=== PATIENT | female | born 1955 | race African-American/Black ===

== ENCOUNTER → 2018-08-24 | Day surgery (SDC) | payer BC ==
--- NOTE | 2018-08-28 12:09 | PATH ---
Surgical Pathology Report Patient Name: PARKER GASPAR [facility]. Rec. #: [id number] /Age/Gender: 1955 (Age: 62) / F Account: [id number] Location: [facility] Taken: 08/24/2018 Received: 08/24/2018 Reported: 08/28/2018 Physicians: Daria Serrano M.D. Specimen(s) Received A: RIGHT BREAST SPECIMEN WITH CALCIFICATIONS B: RIGHT BREAST SPECIMEN WITHOUT CALCIFICATIONS Clinical History Nonpalpable lesion Mammographic findings: Microcalcification, suspicious Final Diagnosis A. RIGHT BREAST, WITH CALCIFICATIONS, STEREOTACTIC BIOPSY: BENIGN BREAST TISSUE WITH FIBROSIS AND MICROCALCIFICATIONS. B. RIGHT BREAST, WITHOUT CALCIFICATIONS, STEREOTACTIC BIOPSY: BENIGN BREAST TISSUE WITH FIBROSIS AND MICROCALCIFICATIONS. Electronically Signed Alfred Mendoza M.D. Gross Description A. Received in formalin labeled "right breast with calcifications," are 6 joshi-yellow, cylindrical portions of fibroadipose tissue ranging from 0.7-3.0 cm in length and averaging 0.3 cm in diameter. The specimens are submitted in toto in 2 cassettes. B. Received in formalin labeled "right breast without calcification," are 6 joshi-yellow, cylindrical portions of fibroadipose tissue ranging from 0.5-2.5 cm in length and averaging 0.3 cm in diameter. The specimens are submitted in toto in 2 cassettes. Time to formalin fixation: 5 minutes Total formalin fixation time: Approximately 7 hours. 08/24/2018 to 08/24/2018
== END | disposition home or self-care (01) ==
LOC: FMAMMOTONE 10:23
PROVIDERS: ATTEND Surgery Surgical Oncology
PROC: 0HBT3ZX Excision of Right Breast, Percutaneous Approach, Diagnostic (ICD-10-PCS; principal; 2018-08-24)
DX: N60.21 Fibroadenosis of right breast (principal); N64.89 Other specified disorders of breast; R92.1 Mammographic calcification found on diagnostic imaging of breast
CPT/HCPCS: 19081; 87899; 88305-TC; A4648